=== PATIENT | male | born 1985 ===

== ENCOUNTER 2017-09-28 08:12 | Emergency (ER) | payer MEDICAID, OTHER ==
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
[2017-09-28 08:38] VITALS: TEMP 98.2; O2SAT 98
[2017-09-28 09:18] VITALS: BP 138/86; PULSE 98; RESP 16
== END 2017-09-28 09:18 ==
LOC: EDUNIT# → EEVIPCON 08:12
DX: S31.119A Laceration without foreign body of abdominal wall, unspecified quadrant without penetration into peritoneal cavity, initial encounter (principal); X78.9XXA Intentional self-harm by unspecified sharp object, initial encounter; Y92.002 Bathroom of unspecified non-institutional (private) residence as the place of occurrence of the external cause; Y93.89 Activity, other specified

== ENCOUNTER 2018-07-10 16:59 | Emergency (ER) | payer MEDICAID ==
[2018-07-10 17:03] VITALS: BP 135/83
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
[2018-07-10] MEDS ORDERED: IBUPROFEN 600 MG TAB PO ONE (17:44)
== END 2018-07-10 18:02 ==
DX: S32.009A Unspecified fracture of unspecified lumbar vertebra, initial encounter for closed fracture (principal); Y04.8XXA Assault by other bodily force, initial encounter; Y92.9 Unspecified place or not applicable; Y93.9 Activity, unspecified; Y99.9 Unspecified external cause status